=== PATIENT | female | born 1995 | race African-American/Black ===

== ENCOUNTER 2023-11-03 12:56 | Outpatient (CLI) | payer OTHER, SELFPAY ==
--- NOTE | ~2023-11-03 | US_ITS ---
EXAMINATION: US OB <= 14 weeks fetus DATE: 11/03/2023 14:07 INDICATION: First trimester dating TECHNIQUE: Real-time pelvic transabdominal and transvaginal ultrasound was performed. COMPARISON: None. FINDINGS: The uterus measures 14.0 x 9.2 x 8.8 cm. There is an intrauterine gestational sac. A yolk s ac is identified. heart motion is identified measuring 166 beats per minute (bpm) by M-mode Dop pler. The crown rump length measures 5.6 cm, which correlates with an estimated gestational age of 12 weeks and 1 day(s) (+/-) 8 day(s). The left ovary is not visualized however no left adnexal abnormality is seen. The right ovary measure s 2.2 x 2.2 x 2.5 cm. There is normal vascular flow in the right ovary. There is no free fluid in the pelvis. IMPRESSION: 1. Live intrauterine with an estimated gestational age of 12 weeks and 1 day(s) (+/-) 8 day (s) and an estimated delivery date of 05/16/2024. Reviewed, dictated and finalized at location [facility] PILOT IMPRESSION: 1. Live intrauterine with an estimated gestational age of 12 weeks an d 1 day(s) (+/-) 8 day(s) and an estimated delivery date of 05/16/2024.
== END 2023-11-03 12:57 | disposition home or self-care (01) ==
DX: Z32.01 Encounter for pregnancy test, result positive (principal)
CPT/HCPCS: 76801

== ENCOUNTER 2024-02-13 19:57 | Observation (INO) | payer OTHER, SELFPAY ==
[2024-02-13] VITALS (20 sets, daily range): BP systolic 106–121; BP diastolic 63–77; PULSE 63–80; O2SAT 100; BMI 25.2
--- NOTE | 2024-02-13 19:57 | PC.NURSE ---
Pt arrives to unit from the Emergency Department with vaginal bleeding.
--- NOTE | 2024-02-13 20:23 | OBADM ---
This patient, Isa Nicholson, admitted to the OB room OB Post 116 for observation. Patient/family oriented to hospital policies and general routines including ID bracelet, bed and alarms, visiting hours, pain management, procedures, bathroom and other care routines, personal items, smoking policy, room service/diet, and visiting hours. Patient/Family are encouraged to report perceived risks to care and to ask questions if they do not understand what they are told or what they should do.
[2024-02-13 21:10] LABS: Appearance Urine Clear (Clear); Bacteria Urine None Seen /hpf; Bilirubin Urine Negative (Negative); Blood Urine Negative (Negative); Color Urine Yellow (Yellow); Glucose Urine UA Negative (Negative); Ketones Urine Negative (Negative); Leukocyte Esterase Ur Trace LEU/UL (Negative); Nitrate Urine Negative (Negative); Non Pathogenic Casts 0-2; Protein Urine Negative (Negative); RBC Urine 0-2 /hpf (0-2); Specific Grav Ur 1.009 (1.001-1.035); Squamous Epithelial Cell Urine Occasional /hpf (Few); WBC Urine 0-5 /hpf (0-3)
[2024-02-13 21:11] LABS: Add Urine Microscopic? YES
--- NOTE | 2024-02-13 21:54 | PC.NURSE ---
Dr. East updated on pt, absent vaginal bleeding, tracing, and vital signs. Orders received to discharge pt with instructions to keep next scheduled appointment and when to return to the unit.
--- NOTE | 2024-02-13 22:08 | PC.NURSE ---
Pt discharged with instructions to keep next scheduled appointment and when to return to the unit.
--- NOTE | 2024-02-15 08:57 | PM.OBTRLD ---
OB - Triage/Final Diagnosis Visit Information Reason for evaluation: threatened labor Comments/Additional reasons for admission: I have assessed the risk for this patient, Isa Nicholson, and determined that she would benefit from observation care. Evaluation Laboratory results: Laboratory Tests 02/13/24 20:48 Urine Color Yellow Urine Appearance Clear Urine pH 7.0 Ur Specific [place] 1.009 Urine Protein Negative Urine Glucose (UA) Negative Urine Ketones Negative Ur Blood (Man) Negative Urine Nitrate Negative Urine Bilirubin Negative Urine Urobilinogen 1.0 Leukocyte Esterase Rfl Trace H Urine RBC 0-2 Urine WBC 0-5 Ur Squamous Epith Cells Occasional Urine Bacteria None seen Urine Casts 0-2
== END 2024-02-13 22:08 | disposition home or self-care (01) ==
PROVIDERS: Admitting Provider Obstetrics & Gynecology; Visit Provider Obstetrics & Gynecology
DX: O47.02 False labor before 37 completed weeks of gestation, second trimester (principal); Z3A.26 26 weeks gestation of pregnancy
CPT/HCPCS: 59025; 81001; G0378; G0379

== ENCOUNTER 2024-05-06 06:47 | Observation (INO) | payer OTHER, SELFPAY ==
--- NOTE | 2024-05-06 06:47 | OBADM ---
This patient, Isa Nicholson, admitted to the OB room Labor/Delivery/Recovery 106 for observation. Patient/family oriented to hospital policies and general routines including ID bracelet, bed and alarms, visiting hours, pain management, procedures, bathroom and other care routines, personal items, smoking policy, room service/diet, and visiting hours. Patient/Family are encouraged to report perceived risks to care and to ask questions if they do not understand what they are told or what they should do.
[2024-05-06 08:30] VITALS: BP 133/97; PULSE 68
[2024-05-06 08:45] VITALS: BP 129/77; PULSE 69
[2024-05-06 09:00] VITALS: BP 123/76; PULSE 60; BMI 29.7
[2024-05-06 09:15] VITALS: BP 132/83; PULSE 55
[2024-05-06 11:04] LABS: OBXCEM ROM Plus Negative
--- NOTE | 2024-05-07 16:29 | PM.OBTRLD ---
OB - Triage/Final Diagnosis Visit Information Date of evaluation: 05/06/24 Reason for evaluation: threatened labor Comments/Additional reasons for admission: I have assessed the risk for this patient, Isa Nicholson, and determined that she would benefit from observation care. Evaluation Laboratory results: Laboratory Tests 05/06/24 08:20 Membranes Rupture Rom plus negative Membranes Rup Com Yes
== END 2024-05-06 09:45 | disposition home or self-care (01) ==
PROVIDERS: Admitting Provider Obstetrics & Gynecology; Referring Provider Advanced Practice Midwife; Visit Provider Obstetrics & Gynecology
DX: O47.1 False labor at or after 37 completed weeks of gestation (principal); Z3A.38 38 weeks gestation of pregnancy
CPT/HCPCS: 84112; G0378; G0379

== ENCOUNTER 2024-05-07 01:00 | Inpatient (IN) | payer OTHER, SELFPAY ==
[2024-05-07] VITALS (259 sets, daily range): BP systolic 104–171; BP diastolic 57–132; PULSE 27–123; RESP 16–18; TEMP 36–37.6; O2SAT 77–100; BMI 29.6
[2024-05-07 02:11] LABS: Basophils Percent Auto 0.2 % (0.2-1.2); Eosinophils Absolute Auto 0.4 K/mm3 (0-0.3); Eosinophils Percent Auto 2.8 % (0-4.4); Hematocrit 35.2 % (37.0-47.0); Hemoglobin 12.7 g/dL (12.0-15.0); Immature Granulocyte Percent A 0.7 % (0-0.5); Lymphocytes Absolute Auto 2.03 K/mm3 (0.9-3.2); Lymphocytes Percent Auto 14.8 % (18.3-44.2); Mean Corpuscular HGB Conc 36.1 g/dl (32-36); Mean Corpuscular Hemoglobin 32.3 pg (26-34); Mean Corpuscular Volume 89.6 fl (80-100); Monocytes Absolute Auto 0.9 K/mm3 (0.1-0.6); Monocytes Percent Auto 6.4 % (2.6-8.5); Neutrophils Absolute Auto 10.3 K/mm3 (1.3-6.7); Neutrophils Percent Auto 75.1 % (45.5-73.1); Platelet Count Result 214 k/mm3 (150-375); Red Blood Count 3.93 M/mm3 (4.2-5.4); Red Cell Distribution Width 13.1 % (11.5-14.5); White Blood Count 13.7 K/mm3 (4.5-10.0)
--- NOTE | 2024-05-07 02:40 | LDADM ---
This patient, Isa Nicholson, was admitted to Labor/Delivery/Recovery 103 on 05/07/24 at 01:00. Plans for labor, pain management and were discussed with patient. Patient/family oriented to hospital policies and general routines including ID bracelet, bed and alarms, visiting hours, pain management, procedures, bathroom and other care routines, personal items, smoking policy, room service/diet and guest tray routines, infant security routines, and visiting hours. Patient/Family are encouraged to report perceived risks to care and to ask questions if they do not understand what they are told or what they should do. See OBIX for further documentation.
[2024-05-07] MEDS: LACTATED RINGERS 1,000 ML 125 ML IV CONT ×3 (02:42→18:56)
[2024-05-07] MEDS: AMPICILLIN 2 GM/NS 100 ML 2 GM/100 ML BAG IVPB (02:42)
[2024-05-07 02:55] LABS: Rubella IgG Antibody 28.4 IU/ML
[2024-05-07 03:06] LABS: HIV 1/2 Ab P24 Ag Result Negative (Negative)
[2024-05-07] MEDS: TERBUTALINE SULFATE 1 MG/ML VIAL 0.25 MG SUB-Q (03:52)
[2024-05-07 04:35] LABS: OBXCEM SROM
[2024-05-07] MEDS: OXYTOCIN 30 UNITS/NS 500 ML 30 UNITS/500 ML BAG IV CONT (06:16)
[2024-05-07] MEDS: AMPICILLIN 1 GM/NS 50 ML 1 GM/50 ML BAG IVPB ×4 (06:56→19:36)
[2024-05-07] MEDS: fentaNYL CITRATE INJ (*CRX) 100 MCG/2 ML VIAL IV PUSH (09:05)
--- NOTE | 2024-05-07 09:47 | WPDANESEPP ---
Anes - Eval Pre Procedure Procedure: labor epidural Date/Time: 05/07/24 09:47 Preop Diagnosis: Pain during labor Pre Op Diagnosis: Leaking fluid Patient Data Age: 28 Gender: F Height: 1.6 m Weight: 75.9 kg Last Vital Signs Temp 36.5 C 05/07/24 07:00 Pulse 52 L 05/07/24 09:31 Resp 16 05/07/24 07:00 BP 148/76 H 05/07/24 09:31 Pulse Ox 97 05/07/24 09:46 O2 Del Method Room Air 05/07/24 02:36 Allergies Allergy/AdvReac Type Severity Reaction Status Date / Time No Known Allergies Allergy Verified 05/07/24 02:43 Laboratory Tests 05/07/24 05/07/24 01:04 01:31 WBC 13.7 H K/mm3 (4.5-10.0) RBC 3.93 L M/mm3 (4.2-5.4) Hgb 12.7 g/dL (12.0-15.0) Hct 35.2 L % (37.0-47.0) MCV 89.6 fl (80-100) MCH 32.3 pg (26-34) MCHC 36.1 H g/dl (32-36) RDW 13.1 % (11.5-14.5) Plt Count 214 k/mm3 (150-375) MPV 11.0 H fl (7.4-10.4) Immature Gran % (Auto) 0.7 H % (0-0.5) Neut % (Auto) 75.1 H % (45.5-73.1) Lymph % (Auto) 14.8 L % (18.3-44.2) [place] % (Auto) 6.4 % (2.6-8.5) Eos % (Auto) 2.8 % (0-4.4) Baso % (Auto) 0.2 % (0.2-1.2) Lymph # (Auto) 2.03 K/mm3 (0.9-3.2) [place] # (Auto) 0.9 H K/mm3 (0.1-0.6) Eos # (Auto) 0.4 H K/mm3 (0-0.3) Baso # (Auto) 0.0 K/mm3 (0.0-0.1) Abs Immat Gran (auto) 0.10 H K/mm3 (0.00-0.031) Absolute Neuts (auto) 10.3 H K/mm3 (1.3-6.7) Absolute Nucleated RBC 0.000 K/mm3 (0.0-0.012) Nucleated RBC % 0.0 % (0.0-0.2) Membranes Rupture Srom Membranes Rup Com Yes RPR Pending HIV 1&2 Ab/P24 Ag 4thGn Negative (Negative) Rubella IgG Antibody 28.4 IU/ML (10 - ) Blood Type B Positive Antibody Screen Negative Patient hx anesthesia problems: none Family hx anesthesia problems: none Results Review: All pre-operative results and documents have been reviewed as part of the pre-operative evaluation. [facility] Social History Social History Smoking status: Never smoker Do You Feel Safe in your Home?: No Lack of Transportation: No Lack of Food: Never True Current Housing: I Have Housing Concerned About Future Housing: No Difficulty Paying Gas/Electric Bills: No Difficulty Paying for Meds: No Currently Unemployed: No Education: High School Diploma/GED Difficulty w/ Childcare or Family Care: No Spiritual care concerns: No Exam Day of Procedure 05/07/24 09:47 Patient weight: normal Heart: regular rate and rhythm Lungs: normal air movement Airway: Mallampati scale class II Neurological: alert and oriented
[2024-05-07 13:35] LABS: Rapid Plasma Reagin Non-Reactive (NonReactive)
--- NOTE | 2024-05-07 16:32 | WPDOBADMIT ---
Obstetrics - Admit Note Admission Note: record reviewed. No pertinent additions to the history and/or any subsequent changes in the physical findings that are not consistent with the expected course of the were found. Additions to the history and/or subsequent changes in the physical findings follow. Admitted, SROM, SVE anticipate vaginal delivery
[2024-05-07] MEDS: ACETAMINOPHEN 500 MG TABLET 1000 MG PO (20:13)
[2024-05-07] MEDS: miSOPROStol 200 MCG TABLET 1000 MCG RECTAL (20:36)
--- NOTE | 2024-05-07 20:41 | P.PCNOB_ITS ---
OB - Vaginal Delivery Note Procedure Delivery date: 05/07/24 Induction method: None Delivery augmentation: Pitocin Delivery monitor: External FHT and Internal Uterine Route of delivery: Episiotomy description: None Laceration Description: Perineal - 2nd Degree Delivery repair: vicryl Specimen: No Quantitative Blood Loss (ml): 450 Anesthesia type: Epidural Disposition: Floor Complications: No immediate complications [place] Baby Date of : 05/07/24 Time of : 20:24 Weeks of gestation at delivery: 38 gender: Male presentation: vertex position: Right Occiput Anterior Placenta delivery description: Spontaneous Cord Vessel Description: 3 Vessels score one minute: 8 score five minutes: 9 Narrative: head delivered and rotated to ANNA, anterior shoulder did not easily deliver under the pubic bone, head back and small amount of suprapubic pressure applied, shoulder released and the rest of the baby delivered without difficulty. cytotec rectally, mother and baby skin to skin in stable condition.
[2024-05-07] MEDS: OXYTOCIN 30 UNITS/NS 500 ML 30 UNITS/500 ML BAG 125 UNITS IV CONT (21:05)
[2024-05-07] MEDS: WITCH HAZEL 40 PADS 1 PAD TOPICAL (22:42)
[2024-05-07] MEDS: BENZOCAINE 20% AER SPR (*SP) 56 GM CAN 1 SPRAY TOPICAL (22:42)
[2024-05-08] MEDS: IBUPROFEN 600 MG TABLET PO (00:23)
--- NOTE | 2024-05-08 01:14 | PC.NURSE ---
2210-Pt arrived to room 280. Pt was on cell phone upon my entry, this rn asked pt to please end call so that I could perform assessment and give information about unit and plan for the night. Pt reluctant to end call however after several minutes call was ended. Pt aware not to get up oob without assistance of this nurse. Pt agreed, pt declined breast pumping at this for infant and request be bottle fed at this time. in level 2 nursery.
[2024-05-08 01:30] VITALS: BP 134/86; PULSE 94; RESP 16; TEMP 37.3; O2SAT 100
--- NOTE | 2024-05-08 03:02 | PC.NURSE ---
0130- Pt laying in bed with FOB, this rn asked pt is she needed anything at this time, pt states she just wants apple juice. Apple juice and ice water given to pt. No other needs at this time. Pt not opening her eyes when speaking, states she is very sleepy. Will continue to monitor.
[2024-05-08 06:02] LABS: Hematocrit 31.7 % (37.0-47.0); Hemoglobin 10.8 g/dL (12.0-15.0)
[2024-05-08] MEDS: MULTIVIT/MIN/PREN/FOL AC/IRON TABLET 1 TAB PO (07:27)
[2024-05-08] MEDS: DOCUSATE SODIUM 100 MG CAPSULE PO (07:27)
--- NOTE | 2024-05-08 07:56 | P.PNOB_ITS ---
Pain Control Date/time seen: 05/08/24 07:56 delete
--- NOTE | 2024-05-08 07:56 | PM.OBPNLAB ---
Pain Control Date/time seen: 05/08/24 07:56 delete
--- NOTE | 2024-05-08 07:57 | PM.OBPNVD ---
OB - PN: Subj Subjective Date/time seen: 05/08/24 07:57 Interval history: pp day 1 doing well, tired baby level 2 OB - PN: Obj Data Labs 05/08/24 04:19 Labs: Laboratory Results - last 24 hr 05/07/24 05/08/24 01:31 04:19 Hgb 10.8 L Hct 31.7 L RPR Non-reactive OB - PN A/P Plan day: 1 Plan: routine care Time Spent With Patient Time: Total time spent is greater than 50% in coordination of care (as documented) at patient's floor/unit and/or counseling patient: Review of Systems Review of Systems: All systems reviewed & are unremarkable except as noted in HPI and below Exam Const: General: cooperative and healthy appearing Chest: Chest palpation & inspection: normal inspection of the chest Resp: Effort & Inspection: normal respiratory effort Cardio: Rate: regular rate Rhythm: regular rhythm GI: Other: soft Skin: General skin exam: normal color Extrem: General: normal to inspection Psych: Appearance: grossly normal
[2024-05-08 08:05] VITALS: BP 126/68; PULSE 68; RESP 18; TEMP 36.7; O2SAT 100
--- NOTE | 2024-05-08 13:53 | WPDANLDPN2 ---
Anes-Prog Note L&D Date/Time: 05/08/24 13:53 Neuro status: Neuro function grossly intact. Cardiovascular status: normal Respiratory status: normal Airway patency: baseline Mental status: baseline Post-Op hydration status: normal Vital Signs: Last Vital Signs Temp 36.7 C 05/08/24 08:05 Pulse 68 05/08/24 08:05 Resp 18 05/08/24 08:05 BP 126/68 05/08/24 08:05 Pulse Ox 100 05/08/24 08:05 O2 Del Method Room Air 05/07/24 02:36 Pain score (VAS): 0 I/O: Intake & Output 05/07/24 05/08/24 05/08/24 23:59 07:59 15:59 Intake Total 1150 Output Total 545 Balance 605 Post-procedural complaints: none Patient feedback: Patient satisfied with anesthetic care.
--- NOTE | 2024-05-08 14:18 | PC.NURSE ---
0900 RN entered room to ask mother about using a breast pump, she was down in Level 2 Nursery with baby. RN advised primary RN of this pt to let her know when the patient had returned to her room. 1145 RN spoke with mother, she has her own breast pump at home, RN advised the patient to take her pump with her to [facility], per mom baby is being transferred there soon. Instructions given on cleaning, care, usage, that there should be no pain, pumping schedule for milk production, collection, and storage of human milk. Patient was assessed for correct placement, flange size, to pump for comfort and nipple stretching/stimulation for adequate milk production every 3 hours (8 times in 24 hours) 1-2 times at night. Mother encouraged to record the pumping schedule on the feeding sheet.?Mother voiced understanding of the education shared along with mom/baby guide and the pump measurement, flange fit handout for additional resource information. Reported to the Primary RN.
--- NOTE | 2024-05-09 17:37 | PM.OBDSVD ---
DS: Admitting Diagnosis Discharge Date 05/08/24 Admitting Diagnosis SROM DS: Discharge Diagnosis Discharge Diagnosis (1) Vaginal delivery: Code(s): O80 - Encounter for full-term uncomplicated delivery Status: Acute OB - DS: Summary OB Procedures : None OB Procedures Intrapartum: Spontaneous Vag Delivery OB Procedures: : None Peripartum Data Laceration Description: Perineal - 2nd Degree Episiotomy description: None Time Spent with Patient Time attestation: Total time spent providing and/or coordinating discharge services: Discharge Plan Discharge Attending physician on discharge: Bryon Herring Consulting providers: Rosalina Del Castillo; Estevan Graham; Erika Dean Discharging Clinician: Rosalina Del Castillo Patient Disposition: Home, Self-Care Activity: pelvic rest Diet: regular Discharge Instructions: Education: Mom and Baby Guide Given to: Mother Follow-Up: Call your delivering provider's office for an appointment to be seen in: 4 Weeks Call [phone] if you are unable to keep your appointment time. BREAST CARE: * Wear a snug supportive bra. * For engorgement discomfort: Breast Feeding: * Apply warm moist washcloths * Express milk as needed to relieve engorgement * Wear loose clothing Bottle Feeding: * May apply ice packs * For sore nipples: * Identify correct latch-on * Apply warm moist washcloths before and after nursing * Air dry nipples after nursing * May apply Lansinoh cream to nipples PERINEAL CARE: * Until bleeding stops, use your micha bottle after urinating * Change your pad frequently throughout the day * You may take sitz baths several times a day (fill your bathtub with warm water and soak for 20 minutes.) Do NOT bathe in the water * No tub baths until seen by your physician - You may shower ACTIVITY: * Rest as much as possible. * Do not exercise or lift anything heavier than your baby (such as laundry or other children.) * Avoid stairs or driving as much as possible. * Do not put anything into the vagina. No douching, tampons, or sexual activity until seen by physician. NOTIFY PHYSICIAN IF YOU HAVE ANY QUESTIONS OR IF ANY OF THE FOLLOWING SYMPTOMS OCCUR: * If your episiotomy or incision becomes red, swollen, or more painful than what you have experienced in the hospital. * If your vaginal bleeding becomes foul smelling. * If your vaginal bleeding becomes more heavy than a period or if your bleeding changes from pink to bright red. However, you may pass an occasional walnut-sized clot once or twice for the first week . * If you experience a sharp, shooting pain in you calves. * If you discover a hard, reddened area on your breast or if you experience flu-like symptoms. DIET: * Eat regular, well-balanced meals. * Drink plenty of fluids daily. If , drink to thirst. Patient Instructions: Expression, Collection and Storage of Breast Milk (DC) Stand Alone Forms: General Discharge Information Follow-up/Referrals: Rosalina Del Castillo CNM [Certified Nurse Slitter Scorer] - 4 Weeks Discharge Medications: New ibuprofen 600 mg Tablet 600 mg PO Q6H PRN (Reason: Cramping) Qty: 30 0RF Date of admission: 05/07/24 01:00 Primary Care Provider: MylesLawson Admitting Provider: Bryon Herring Attending physician on admission: Bryon Herring Condition: Stable
== END 2024-05-08 13:03 | disposition home or self-care (01) | DRG 560 ==
LOC: ANHOBOP 01:10 → ANHLDR 01:10 → ANHOB2 23:16
PROVIDERS: Advanced Practice Midwife; Admitting Provider Obstetrics & Gynecology; Visit Provider Obstetrics & Gynecology
DX: O99.824 Streptococcus B carrier state complicating childbirth (principal); Z37.0 Single live birth; Z3A.38 38 weeks gestation of pregnancy; O70.1 Second degree perineal laceration during delivery
CPT/HCPCS: 36415; 84112; 85014; 85018; 85025; 86592; 86703; 86762; 86850; 86900; 86901; A9270; G0432; J0290; J2590; J2795; J3010; J3105; J7120